=== PATIENT | female | born 2000 | race African-American/Black ===

== ENCOUNTER 2025-02-26 17:23 | Emergency (ER) | payer SELFPAY ==
[2025-02-26 17:33] VITALS: BP 154/100
[2025-02-26] MEDS: VALIUM INJECTION 5 MG IV ×2 (20:09→22:36)
[2025-02-26] MEDS: TORADOL 15 MG IV ×2 (20:10→22:35)
--- NOTE | 2025-02-26 20:10 | ED.GENMED ---
History of Present Illness
General
Chief Complaint: Back Pain
Source: patient
Exam Limitations: none
Time Seen by Provider: 02/26/25 19:28
History of Present Illness
History of Present Illness:
25-year-old female presents complaining of significant lower back pain into her pelvis with associated shakiness into her legs. She denies any bowel or bladder dysfunction. No perianal anesthesia. No fevers. In November she fell onto her back
landing on her tailbone. She notes clicking over her tailbone since then. The pain significantly worsened 3 days ago when she lifted a heavy bed. She now notes that she has trouble standing straight up as she has a squeezing sensation in her
lower back. No other complaints at this time
Phy Exam
Physical Exam
Physical Exam:
General: Well-appearing female no acute respiratory distress
HEENT: Normal cephalic atraumatic
Heart: Regular rate and rhythm
Lungs: Clear no wheeze
Musculoskeletal exam: Tender diffusely of the lower lumbar spine and upper sacrum good range of motion to the lower extremities
Neurologic exam: Ambulatory good sensation to the legs bilateral patellar reflexes 2+. Negative straight leg raise bilaterally
Vascular: 2+ DP pulse bilateral feet.
Course
Orders/Labs/Results
Orders:
Orders
02/26/25 19:45
CT Lumbar Spine W/o Iv Contras Urgent
Comment:
Reason For Exam: pain
CT Pelvis W/o Iv Contrast Urgent
Comment:
Reason For Exam: fall, pain
02/26/25 19:46
Ketorolac [Toradol] 15 mg IV NOW STA
diazePAM [Valium Injection] 5 mg IV NOW STA
Test Result ONCE
02/26/25 20:09
HCG, Serum Qualitative Screen Urgent
02/26/25 22:20
Ketorolac [Toradol] 15 mg IV NOW STA
diazePAM [Valium Injection] 5 mg IV NOW STA
Vital Signs
Initial and Last Documented VS:
Initial Vital Signs
Temp Pulse Resp BP Pulse Ox
98.1 F 116 18 154/100 97
02/26/25 17:33 02/26/25 17:33 02/26/25 17:33 02/26/25 17:33 02/26/25 17:33
Last Documented Vital Signs
Temp Pulse Resp BP Pulse Ox
98.1 F 83 18 143/93 100
02/26/25 17:33 02/26/25 20:17 02/26/25 17:33 02/26/25 20:17 02/26/25 20:17
MDM/Problems Addressed
Differential Diagnosis Includes:
Lower back pain with pain rating down the legs. No red flags to suggest cauda equina. No fever to suggest infectious source. Question lumbar strain versus degenerative disc disease versus radiculopathy
Given significant pain and recent fall and unclear x-ray she had at a different hospital order CT of the back and pelvis. Treated symptoms with toradol and valium.
*Pulse Oximetry
SaO2: 97
Oxygen Mode of Delivery: Room air
Patient hypoxic: no
*Critical Care Note
Total Time (30-74mins, 75-104mins- exclusive of procedures): Not Applicable
Update Note
Update Note:
CT demonstrates mild to moderate central disc herniation at L4-L5 without foraminal narrowing. No fractures noted. Patient did have some relief with initial dosing however after moving the CAT scan table her pain returned. We redosed her
medication we will plan on prescribing more muscle relaxers and anti-inflammatories at home with follow-up with back pain specialist. Stable for discharge
ED Attending Note
-
Portions of this chart may have been created with voice recognition software.� Occasional wrong word or��sound alike� substitutions may have occurred due to the inherent limitations of voice recognition software.
Discharge Plan
Departure
Patient Disposition: Home (Routine Discharge)
Date of Disposition: 02/26/25
Time of Disposition: 22:21
Patient with high blood pressure during this ER visit?: No
Discharge Problem:
Back pain
Instructions: Low Back Pain (DC)
Prescriptions:
New
diazepam [Valium] 5 mg tablet
5 mg PO TID PRN (Reason: muscle spasm) Qty: 10 0RF
prednisone 10 mg Tablet
See Rx Instructions .ROUTE .COMPLEX Qty: 45 0RF
Rx Instructions:
Take By Mouth:
50 mg daily x3 days, 40 mg daily x3 days,
30 mg daily x3 days, 20 mg daily x3 days,
10 mg daily x3 days
Referrals:
Esteban Allen DO [Non-Admitting Privileges, Orthopedics]
Adrienne Olivier DO [Family Provider, Family Practice]
Stand Alone Forms: Return to Work
Activity Restrictions/Additional Instructions:
Rest. Avoid heavy lifting. Use medicine as directed. Follow-up with back pain specialist.
Interventions
Interventions:
*Risk Screen - Suicide Last Done: 02/26/25 17:33
*General Assessment Last Done: 02/26/25 17:33
*Neglect/Abuse Screening Last Done: 02/26/25 17:33
*ED- Fall Risk Assessment Last Done: 02/26/25 18:29
*ED COVID-19 Vaccine History Last Done: 02/26/25 18:29
*ED Influenza Vaccine History Last Done: 02/26/25 18:29
ED-Musculoskeletal Assessment Last Done: 02/26/25 18:29
Discharge Date and Time
Print Language: GERMAN
[2025-02-26 20:17] VITALS: BP 143/93
[2025-02-26 20:39] LABS: HCG, Serum Qualitative Screen Negative
[2025-02-26 22:36] VITALS: BP 157/96
== END 2025-02-26 22:45 | disposition home or self-care (01) ==
LOC: EMR 17:23
PROVIDERS: Physician Assistant; EMERGENCY PHYSICIAN Emergency Medicine; FAMILY PHYSICIAN Family Medicine
DX: M54.50 Low back pain, unspecified (principal); X50.0XXA Overexertion from strenuous movement or load, initial encounter
CPT/HCPCS: 99284; 96374; 96375; 96376; 72131; 72192; 84703